=== PATIENT | female | born 1980 | race Caucasian/White ===

== ENCOUNTER 2019-05-31 23:57 | Emergency (ER) | payer BC, SELFPAY ==
--- NOTE | ~2019-05-31 | CT_ITS ---
EXAMINATION: CT BRAIN W/O DATE: 06/01/2019 00:39 INDICATION: Sided weakness and numbness TECHNIQUE: Computed tomography (CT) of the head was performed without intravenous contrast. The dose- length product was 681.00 mGy-cm. Automated exposure control and iterative reconstruction technique w ere employed. COMPARISON: No prior studies for comparison. FINDINGS: Normal brain parenchymal volume for age. Normal palacios-white differentiation. No acute intrac ranial hemorrhage, infarction, mass or mass effect. No ventriculomegaly or midline shift. Midline sagittal images demonstrate a normal corpus callosum, c raniovertebral junction and sella turcica. Basilar cisterns are patent. Paranasal sinuses and mastoids are pneumatized. No depressed skull fractures. IMPRESSION: 1. No acute intracranial abnormality. Reviewed, dictated and finalized at location A.
--- NOTE | ~2019-05-31 | XR_ITS ---
EXAMINATION: XR chest 1V portable 06/01/2019 00:46 INDICATION: Left-sided weakness PROCEDURE: AP portable chest COMPARISON: 06/30/2016 FINDINGS: The lungs are clear. The cardiomediastinal silhouette is within normal limits. There are no pleural effusions. There is no pneumothorax suspected. IMPRESSION: 1: NO ACUTE CARDIOPULMONARY DISEASE. Reviewed, dictated and finalized at location A.
[2019-06-01] VITALS (7 sets, daily range): BP systolic 76–136; BP diastolic 51–92; PULSE 100–120; RESP 16–18; TEMP 36.3–37.1; O2SAT 95–100
--- NOTE | 2019-06-01 00:14 | ECG_ITS ---
Measurements Intervals [place] Rate: 110 P: 26 UT: 137 QRS: 7 QRSD: 93 T: 34 QT: 326 QTc: 442 Interpretive Statements SINUS TACHYCARDIA BASELINE ARTIFACT- I, II, V3 ABNORMAL ECG Electronically Signed On 06-01-2019 8:28:38 CDT by Chon Alas D.O.
--- NOTE | 2019-06-01 00:25 | ED.NEUROSD ---
HPI - Neuro Symptoms/Deficit General Chief Complaint: Suspected CVA Stated Complaint: left side weakness Time Seen by Provider: 06/01/19 00:23 Source: patient, family (Mother at bedside) and RN notes reviewed Mode of arrival: ambulatory Limitations: no limitations History of Present Illness HPI Narrative: Pt is a 39 y/o female presenting to the ED c/o numbness. Pt reports she started experiencing lt sided numbness at 2130 this evening. Pt also reports lt sided rib pain, lt foot weakness, LUE weakness, and moderate lt sided HERNANDEZ. Pt notes her rib pain occurred simultaneously with her numbness and notes her lt sided HERNANDEZ occurred while she arrived to the ED. Pt states she is not currently on any hormone therapy. Pt notes she is able to ambulate. Pt states she was hospitalized at [facility] for a TIA 6 years ago. Pt notes they saw a tiny bleed . Pt's mother at bedside reports the pt's speech is mildly slurred and notes she is mildly confused. Pt reports hx's of x2, breast reduction, Tonsillectomy, Cholecystectomy, and hysterectomy. Pt states her PCP is Dr. Bravo. Pt notes she quit smoking 6 years ago. Time: 21:30 Location: left arm and left leg Associated symptoms: confusion (Per mother), headaches (Lt sided), weakness (Lt foot; LUE) and other (Lt rib pain; Mild slurred speech (per mother)) Related Data Home Medications Medication Instructions Recorded Confirmed liraglutide (weight loss) 3 mg/0.5 3 mg SUB-Q DAILY 01/24/19 mL (18 mg/3 mL) subcut pen injector Allergies Allergy/AdvReac Type Severity Reaction Status Date / Time No Known Allergies Allergy Unverified 04/26/18 08:30 Review of Systems Review of Systems: All systems reviewed & are unremarkable except as noted in HPI and below Musculoskeletal: Musculoskeletal: Reports other (Lt ribs pain) Neurologic: Reports headache(s) (Lt sided), Reports numbness (Lt sided) and Reports weakness (Lt foot; LUE) [facility] Past Medical History Medical History (Updated 06/01/19 @ 04:09 by Muna Hill MD) TIA (transient ischemic attack) Surgical History Surgical History H/O bilateral breast reduction surgery H/O: hysterectomy History of History of cholecystectomy Social History Social History Smoking status: Former smoker Alcohol intake: never Gender identity (if verbalized by the patient): Female Exam Const: General: cooperative, no acute distress and alert Nutritional Appearance: well nourished Orientation/consciousness: patient oriented x3 Limitations: no limitations HENMT: Mouth: Yes lip normal and Yes moist mucous membranes Eyes: Pupils: Equal, round and reactive pupils present EOM: EOMs intact bilaterally Resp: Effort & Inspection: normal respiratory effort Auscultation: clear to auscultation bilaterally Cardio: Rate: regular rate Rhythm: regular rhythm GI: GI Palp: Yes Soft to palpation and No Tenderness to palpation present (GI) Auscultation: normal bowel sounds Skin: General skin exam: normal color Neuro: General: patient oriented x3 Cranial nerves: Yes Other cranial nerve findings present (Mild lt sided facial droop) Cognition (Neuro): normal cognition Speech: normal speech Motor exam (neuro): Pronator motor function not present and Abnormal motor strength present (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 Cannot exclude possibility of acute CVA, though possibility of stroke mimics seems more likely
[2019-06-01 00:27] LABS: Glucose Point of Care 70 (65-105)
[2019-06-01 00:40] LABS: Basophils Percent Auto 0.2 % (0.2-1.2); Eosinophils Absolute Auto 0.1 K/mm3 (0-0.3); Eosinophils Percent Auto 1.3 % (0-4.4); Hematocrit 41.8 % (37.0-47.0); Hemoglobin 13.5 g/dL (12.0-15.0); Immature Granulocyte Absolute 0.02 K/mm3 (0.00-0.031); Immature Granulocyte Percent A 0.4 % (0-0.5); Lymphocytes Absolute Auto 2.77 K/mm3 (0.9-3.2); Lymphocytes Percent Auto 49.9 % (18.3-44.2); Mean Corpuscular HGB Conc 32.3 g/dl (32-36); Mean Corpuscular Hemoglobin 29.4 pg (26-34); Mean Corpuscular Volume 91.1 fl (80-100); Mean Platelet Volume 9.2 fl (7.4-10.4); Monocytes Absolute Auto 0.4 K/mm3 (0.1-0.6); Monocytes Percent Auto 6.5 % (2.6-8.5); Neutrophils Absolute Auto 2.3 K/mm3 (1.3-6.7); Neutrophils Percent Auto 41.7 % (45.5-73.1); Platelet Count Result 325 k/mm3 (150-375); Red Blood Count 4.59 M/mm3 (4.2-5.4); White Blood Count 5.6 K/mm3 (4.5-10.0)
[2019-06-01 00:45] LABS: INR 0.9; Prothrombin Time 11.9 Seconds (11.1-14.7)
[2019-06-01 00:46] LABS: Partial Thromboplastin Time 28.3 SECONDS (22.3-36.8)
[2019-06-01 00:50] LABS: Blood Urea Nitrogen 7 mg/dL (7-17); Calcium 9.6 mg/dL (8.4-10.2); Carbon Dioxide 24 mmol/L (22-30); Chloride 106 mmol/L (98-107); Estimated Glomerular Filt Rate > 60; Glucose 74 mg/dL (65-105); Potassium 3.9 mmol/L (3.4-5.0); Sodium 143 mmol/L (137-145)
[2019-06-01 01:02] LABS: Troponin I < 0.012 ng/mL (0.000-0.034)
--- NOTE | 2019-06-01 03:02 | PC.NURSE ---
Pt currently has a onset of nausea and vomiting as well as complaints of a h/a, MD Greenberg made aware.
[2019-06-01] MEDS: ONDANSETRON INJ 4 MG/2 ML VIAL IV PUSH (03:11)
[2019-06-01] MEDS: KETOROLAC 30 MG/ML VIAL (*BKC) IV PUSH (03:11)
--- NOTE | 2019-06-01 03:23 | PC.NURSE ---
Pt mother refused medication (Reglan) due to her own previous reaction. This RN asked Pt directly if she wanted the medication and the patient allowed her mother to make the decision.
[2019-06-01] MEDS: METOCLOPRAMIDE HCL INJ 10 MG/2 ML VIAL IV PUSH (03:43)
--- NOTE | 2019-06-01 04:11 | PC.NURSE ---
Addendum entered by Maribel Copeland 06/01/19 05:00: Cancelled [facility] @ [id number]. [facility] arrived at 0456 Original Note: Called [facility] to transport patient to [place] [facility]...Declined-no truck available Called [facility] to transport patient to [facility]...Declined Called [facility]...ETA 0830 Called [facility] ... ETA 45-60 minutes.
[2019-06-01 05:03] LABS: Ethanol 147 mg/dL (<10)
== END 2019-06-01 05:01 | disposition short-term general hospital (02) ==
PROVIDERS: Emergency Provider Emergency Medicine; PCP Family Medicine
DX: R53.1 Weakness (principal); R51 Headache; Z86.73 Personal history of transient ischemic attack (TIA), and cerebral infarction without residual deficits; Z87.891 Personal history of nicotine dependence; R00.0 Tachycardia, unspecified
CPT/HCPCS: 36415; 70450; 71045; 80048; 80307; 81025; 82948; 84484; 85025; 85610; 85730; 93005; 96374; 96375; 99285; J1885; J2405; J2765

== ENCOUNTER → 2020-12-23 09:54 | Outpatient (CLI) | payer BC, SELFPAY ==
--- NOTE | ~2020-12-23 | XR_ITS ---
EXAMINATION: XR chest 2V DATE: 12/23/2020 10:09 INDICATION: Cough. And shortness of breath. Anterior central chest pain. Possible COVID. TECHNIQUE: frontal and lateral views of the chest were obtained. COMPARISON: Chest radiograph dated 06/01/2019 FINDINGS: The lungs remain clear with no focal airspace opacities, pulmonary edema, pleural effusion or pneumot horax. The cardiomediastinal silhouette is normal. Mild thoracic spondylosis. Cholecystectomy clips i n the right upper quadrant. IMPRESSION: 1. No acute cardiopulmonary disease. Reviewed, dictated and finalized at location A.
== END ==
PROVIDERS: PCP Family Medicine; Visit Provider Nurse Practitioner Family
DX: R05 Cough (principal)
CPT/HCPCS: 71046

== ENCOUNTER → 2020-12-24 03:05 | Outpatient (CLI) | payer BC, SELFPAY ==
[2020-12-24 18:36] LABS: SARS-CoV-2 RNA PCR Negative
== END ==
PROVIDERS: PCP Family Medicine; Visit Provider Nurse Practitioner Family
DX: J40 Bronchitis, not specified as acute or chronic (principal); Z20.822 Contact with and (suspected) exposure to COVID-19
CPT/HCPCS: C9803; U0003; U0005

== ENCOUNTER → 2021-04-06 02:58 | Outpatient (CLI) | payer BC, SELFPAY ==
[2021-04-06 21:19] LABS: SARS-CoV-2 RNA PCR Positive
== END ==
PROVIDERS: PCP Family Medicine; Visit Provider Family Medicine
DX: U07.1 COVID-19 (principal); R51.9 Headache, unspecified; R05.9 Cough, unspecified; R53.83 Other fatigue; J02.9 Acute pharyngitis, unspecified
CPT/HCPCS: C9803; U0003; U0005

== ENCOUNTER 2022-10-30 11:06 | Outpatient (CLI) | payer OTHER, SELFPAY ==
--- NOTE | ~2022-10-30 | MMUS_ITS ---
EXAMINATION: MM diagnostic sarika BI w tennille, US breast BI limited HISTORY: Pain and palpable lump in the upper outer quadrant of the left breast TECHNIQUE: Craniocaudal, mediolateral, and mediolateral oblique 3-D tomosynthesis images of the breas ts were performed and synthetic 2-D images were generated. CAD analysis was submitted and interpreted . High resolution limited bilateral breast ultrasound was performed. COMPARISON: 05/13/2018 BREAST PARENCHYMAL COMPOSITION: There are scattered areas of fibroglandular density. FINDINGS: MAMMOGRAPHIC FINDINGS: No definite mammographic correlate is identified for the reported palpable abnormality of the left br east. There is a 4 mm oval, circumscribed, low density mass at the 6:00 location the middle third of the right breast 8 cm from the nipple. ULTRASOUND: There is no evidence of focal abnormal solid or cystic mass in the vicinity of the reported palpable abnormality of the left breast. There is a 5 mm cyst of the right breast at the 5:00 location, 3 cm f rom the nipple. A mass with the appearance of an intramammary lymph node is noted at the 7:00 locatio n, 2 cm from the nipple on the right breast. IMPRESSION: 1. No specific mammographic or sonographic correlate is identified for the reported palpable abnormal ity of concern and pain in the left breast. Further evaluation at this time should be based on clinic al assessment. Continued follow-up physical examination is recommended. 2. Recommend routine screening mammography in one year. BI-RADS Category 2: Benign finding(s). Reviewed, dictated and finalized at location A. IMPRESSION: 1. No specific mammographic or sonographic correlate is identified for the repo rted palpable abnormality of concern and pain in the left breast. Further evalu ation at this time should be based on clinical assessment. Continued follow-up physical examination is recommended. 2. Recommend routine screening mammography in one year. BI-RADS Category 2: Benign finding(s).
== END 2022-10-30 11:07 | disposition home or self-care (01) ==
LOC: ANHIMG 11:09
PROVIDERS: PCP Family Medicine; Visit Provider Nurse Practitioner Family
DX: N63.20 Unspecified lump in the left breast, unspecified quadrant (principal); R92.8 Other abnormal and inconclusive findings on diagnostic imaging of breast
CPT/HCPCS: 76642; 77062; 77066; G0279

== ENCOUNTER 2023-05-01 13:10 | Outpatient (CLI) | payer OTHER, SELFPAY ==
[2023-05-01 13:31] LABS: Hematocrit 44.1 % (37.0-47.0); Hemoglobin 14.2 g/dL (12.0-15.0); Mean Corpuscular HGB Conc 32.2 g/dl (32-36); Mean Corpuscular Volume 93.2 fl (80-100); Platelet Count Result 298 k/mm3 (150-375); Red Blood Count 4.73 M/mm3 (4.2-5.4); Red Cell Distribution Width 12.7 % (11.5-14.5); White Blood Count 6.2 K/mm3 (4.5-10.0)
[2023-05-01 14:02] LABS: Alanine Aminotransferase 14 U/L (6-35); Albumin Level 4.3 g/dL (3.5-5.1); Alkaline Phosphatase 57 U/L (38-126); Anion Gap 5 mmol/L (8-16); Aspartate Amino Transferase 21 U/L (14-36); Bilirubin,Total 0.4 mg/dL (0.2-1.3); Blood Urea Nitrogen 9 mg/dL (7-17); Calcium 9.6 mg/dL (8.4-10.2); Carbon Dioxide 28 mmol/L (22-30); Chloride 105 mmol/L (98-107); Cholesterol 232 mg/dL (0-200); Estimated Glomerular Filt Rate > 60; Glucose 142 mg/dL (65-110); HDL Direct 53 mg/dL; Potassium 4.1 mmol/L (3.4-5.0); Sodium 138 mmol/L (137-145); Triglycerides 224 mg/dL (<150)
[2023-05-01 14:13] LABS: LDL Cholesterol Direct 128 mg/dL
[2023-05-01 15:01] LABS: Hemoglobin A1C 5.9 % (<5.7)
[2023-05-03 18:49] LABS: CMV IgG Antibody <0.60 U/mL (<0.60)
[2023-05-04 06:28] LABS: Insulin Level Total 43.3 uIU/mL (<=18.4)
[2023-05-04 17:35] LABS: CMV IgM Antibody <30.00 AU/mL (<30.00)
== END 2023-05-01 13:11 | disposition home or self-care (01) ==
LOC: ANHLAB 13:12
PROVIDERS: PCP Family Medicine; Visit Provider Nurse Practitioner Family
DX: R53.83 Other fatigue (principal); E55.9 Vitamin D deficiency, unspecified; E78.2 Mixed hyperlipidemia; E16.2 Hypoglycemia, unspecified
CPT/HCPCS: 36415; 80053; 80061; 82306; 83036; 83525; 84443; 85027; 86644; 86645

== ENCOUNTER 2023-10-24 13:49 | Outpatient (CLI) | payer OTHER, SELFPAY ==
--- NOTE | ~2023-10-24 | XR_ITS ---
XR hip RT 2V w AP pelvis Ordering provider: Shavon Sultana, PAC History: . fall 8 days ago right hip and tailbone pain . Comparison: None. FINDINGS: BONES: No acute fracture or dislocation. HIP JOINT SPACES: Normal. SACROILIAC JOINT SPACES/LUMBAR SPINE: The sacroiliac joint spaces are normal. Normal visualized lower lumbar spine. PUBIC SYMPHYSIS: Normal. SOFT TISSUES: Normal. IMPRESSION: No acute osseous abnormality pelvis and right hip. Reviewed, dictated and finalized at location A.
--- NOTE | ~2023-10-24 | XR_ITS ---
XR sacrum coccyx min 2V Ordering provider: STANLEY Awad History: . fall 8 days ago right hip and tailbone pain . Comparison: None. FINDINGS: BONES: No acute fracture or dislocation. JOINTS: The bilateral sacroiliac joint spaces appear well maintained. No bony fusion of the sacroilia c joints or bony erosions. SOFT TISSUES: Unremarkable. IMPRESSION: NO ACUTE OSSEOUS ABNORMALITY. NORMAL SACROILIAC JOINTS. Reviewed, dictated and finalized at location A.
== END 2023-10-24 13:50 ==
PROVIDERS: PCP Physician Assistant Medical; Visit Provider Physician Assistant Medical
DX: M25.551 Pain in right hip (principal); M53.3 Sacrococcygeal disorders, not elsewhere classified
CPT/HCPCS: 72220; 73502

== ENCOUNTER 2024-07-10 13:02 | Emergency (ER) | payer BC, SELFPAY ==
--- NOTE | ~2024-07-10 | XR_ITS ---
EXAMINATION: XR ankle LT min 3V DATE: 07/10/2024 14:29 INDICATION: Lateral left ankle pain TECHNIQUE: Anteroposterior, oblique, mortise, and lateral views of the left ankle were obtained. COMPARISON: None. FINDINGS: 1 cortical width lateral displacement of an oblique fracture of the lateral malleolus which exits the medial cortex at level of the tibiotalar joint line. No other fractures identified. Ankle mortise re gerald congruent. Joint spaces are normal. Large ankle joint effusion. Small calcaneal spur. There is soft tissue swelling about the lateral malleolus. No soft tissue swelling about the medial malleolus. IMPRESSION: 1. Minimally displaced Matt type B oblique fracture of the lateral malleolus with large left ankle j oint fusion. Reviewed, dictated and finalized at location A. IMPRESSION: 1. Minimally displaced Matt type B oblique fracture of the lateral malleolus w ith large left ankle joint fusion.
[2024-07-10 13:04] VITALS: BP 90/61; PULSE 106; RESP 18; TEMP 36.8; O2SAT 99
--- OUTSIDE RECORDS SUMMARY | 2024-07-10 13:21 | XMS_ITS ---
Author Organization [employer] [facility] Address [address] [place] [address] Care Team Providers Care Spooler Operator Name Role Phone Denise Boston Primary Care Provider REASON FOR VISIT New Refill Request Encounters Encounter Location Date Provider Diagnosis [facility] - Denise Boston [address] [place] [address] 2024 Denise Boston Plan Of Treatment No Information Progress Notes * MARVIN COLEOB:[birth year] (44 yo F)Acc No.[id number] Patient: Chris LAUREN LINDA :1980 A ge:44 Y S ex:Female Address:[facility] [place] [address] * * Date:
--- OUTSIDE RECORDS SUMMARY | 2024-07-10 13:21 | XMS_ITS | Clinical Summary ---
Author Organization [facility] Address [address] [place] [address] Care Team Providers Care Physician General Internal Medicine Name Role Phone Jarrell Bravo MD Primary Care Provider Source Comments [facility],non-owned Affiliates and Associated Physician Practices is amultiple site organization consisting of ambulatory clinics and hospital sitesin [place] and [place]. This disclosure is being madepursuant to the Care Everywhere program and may not contain all information available regarding this patient. Last updated 17.[facility] Allergies No known active allergies Medications * Be aware that medications may not be up to date on this document. Alwaysverify current medications with the patient. escitalopram (LEXAPRO) 20 MG tablet Take 20 mg by mouth once daily Active fluticasone propionate (FLONASE) 50 MCG/ACT nasal spray [place] 2 sprays into each nostril once daily 1 bottles 06/17/2017 Active Active Problems No known active problems Family History Medical History Relation Name Comments ADHD Brother 1 Multiple Sclerosis Sister 1 Autoimmune Disease Sister 2 Relation Name Status Comments Brother 1 Alive Brother 2 Alive Brother 3 Alive Father Alive Mother Alive Sister 1 Alive Sister 2 Alive Social History Tobacco Use Types Packs/Day Years Used Date Smoking Tobacco: Former Cigarettes 0.3 10 2 003 - 2012 Smokeless Tobacco: Never Alcohol Use Standard Drinks/Week Comments Yes 0 (1 standard drink = 0.6 oz pur e alcohol) Comments No Sex and Gender Information Value Date Recorded Sex Assigned at Not on file Legal Sex Female 11:28 AM CDT Gender Identity Not on file Sexual Orientation Not on file Last Filed Vital Signs Vital Sign Reading Time Taken Comments Blood Pressure 118/84 06/17/2017 2:48 PM CDT Pulse 108 06/17/2017 2:48 PM CDT Temperature 37.5 C (99.5 F) 06/17/2017 2:48 PM CDT Respiratory Rate 16 06/17/2017 2:48 PM CDT Oxygen Saturation 98% 06/17/2017 2:48 PM CDT Inhaled Oxygen Concentration - - Weight 81.6 kg (180 lb) 06/17/2017 2:48 PM CDT Height 170.2 cm (5' 7 ) 06/17/2017 2:48 PM CDT Body Mass Index 28.19 06/17/2017 2:48 PM CDT Plan of Treatment Health Maintenance Due Date Last Done Comments LIPID TESTING 1980 MAMMOGRAM 1980 PAP SMEAR 1980 HIV SCREENING 1995 HEPATITIS C SCREENING 05/16/1998 DTAP/TDAP/TD VACCINES (1 - Tdap) 1999 HEPATITIS B VACCINE (1 of 3 - 19+ 3-dose series) 1999 COVID-19 VACCINE (1 - 2023-2 5 season) 2023 DEPRESSION SCREENING 03/26/2024 INFLUENZA VACCINE (Season Ended) 2024 ZOSTER VACCINE (1 of 2) 2030 HIB VACCINE Aged Out No longer eligi ble based on patient's age to complete this topic HPV VACCINE Aged Out No longer eligi ble based on patient's age to complete this topic MENINGOCOCCAL (Group B) VACC INE SHARED DECISION-MAKING Aged Out No longer eligibl e based on patient's age to complete this topic MENINGOCOCCAL GROUPS A/C/Y/W VACCINE Aged Out No longer eligible b ased on patient's age to complete this topic PNEUMOCOCCAL VACCINE Aged Out No long er eligible based on patient's age to complete this topic Insurance [employer] [facility] [facility] Care Teams Physician General Internal Medicine Relationship Specialty Start Date End Date Jarrell Bravo MD [address] [place] [address] PCP - General Family Medicine 07/24/16
--- OUTSIDE RECORDS SUMMARY | 2024-07-10 13:21 | XMS_ITS ---
Author Organization [employer] [facility] Address [address] [place] [address] Care Team Providers Care Director Of Regional Sales Name Role Phone Denise Boston Primary Care Provider REASON FOR VISIT New Refill Request Encounters Encounter Location Date Provider Diagnosis [facility] - Denise Boston [address] [place] [address] 06/26/2024 Denise Boston Plan Of Treatment No Information Progress Notes * MARVIN COLEOB:[birth year] (44 yo F)Acc No.[id number]:06/26/2024 Patient: Chris LAURENGENNALINDA :1980 A ge:44 Y S ex:Female Address:[facility] [place] [address] * * Date:
--- OUTSIDE RECORDS SUMMARY | 2024-07-10 13:21 | XMS_ITS | Clinical Summary ---
Author Organization [facility] Address [address] [place] [address] Care Team Providers Care Car Hiker Name Role Phone Jarrell Bravo MD Primary Care Provider + [phone] Allergies No known active allergies Medications venlafaxine XR (Effexor XR) 150 mg 24 hr capsule 07/29/2016 Active BIOTIN ORAL Take by mouth Active multivitamin capsule Take 1 capsule by mouth daily Active busPIRone (BUSPAR) 10 mg tablet Take 1 tablet (10 mg total) by mouth 2 (two) times a day 10/01/2022 Active tirzepatide (Mounjaro) 2.5 mg/0.5 mL pen injector Inject 0.5 mL (2.5 mg total) under the skin every 7 days Active metFORMIN XR (GLUCOPHAGE XR) 500 mg 24 hr tablet Take 1 tablet (500 mg total) by mouth 2 (two) times a day 01/01/2024 Active Active Problems Problem Noted Date Diagnosed Date Breast tenderness 12/19/2022 Assessment & Plan (12/19/2022 2:49 PM CDT): Discussed options including repeat imaging now or reevaluating in March which would be 6 months from previous imaging. She will continue to monitor and come in for an exam if pain worsens. Plan for repeat imaging in October at minimum. Migraine with aura and witho ut status migrainosus, not intractable 07/31/2019 Assessment & Plan (07/31/2019 11:13 AM CDT): 39 year old right-handed woman who presents after recent episode of several hours of left sided sensory changes and possible transient left facial droop followed by typical migraine. She gets migraine every 6-8 weeks, usually without aura aside from one similar episode about 8 years ago. Strong family history of migraine with aura, although not clear as prominent as patient's. Given her normal MRI/MRA and migraine history, the likely explanation is this is an atypical migraine aura/complicated migraine. We did discuss her concerns for stroke risk, and I did explain while I cannot 100% exclude this possibility, I did review her otherwise apparent low vascular risk. She has been taking aspirin 81 and while I deferred to her own feelings on risk/benefit of this, I did not strongly recommend this and felt it would be reasonable to discontinue at this time. Given her infrequent headaches otherwise, while I introduced preventatives, did not feel this was necessary at this time. We reviewed acute treatment options, however she is currently happy with advil migraine. If recurrent severe headaches occur, would consider steroid taper or outpatient toradol/compazine as options. Could consider Ubrelvy/Nurtec as alternate oral options as well. RTC in 6 months to reassess, but call if recurrent issues/concerns. I was with the patient for over 40 minutes in face to face time and spent >50% of the visit reviewing pertinent test results with the patient, counseling them on medication management options and lifestyle changes that could benefit symptoms, answering their questions, and discussing follow-up planning Vitamin B12 deficiency anemia 01/25/2018 Arthralgia of ankle 10/30/2011 Immunizations Immunization Administration Dates Next Due Influenza, Trivalent, IM (MDV) 12/25/2014 Tdap 12/30/2014 Surgical History Surgery Date Site/Laterality Comments BREAST SURGERY 12/2008 COSMETIC SURGERY 12/2008 SECTION 02/2015; 01/2016 CHOLECYSTECTOMY 06/2016 HYSTERECTOMY 04/2018 REDUCTION MAMMAPLASTY Medical History Medical History Date Comments Anxiety 2014 Depression 2014 Seizures (HCC) 06/2021 History of foot fracture Family History Medical History Relation Name Comments Alzheimer's disease Maternal Grandfather Can cee Memory loss Maternal Grandfather Can cee Stroke Maternal Grandfather Can cee Alzheimer's disease Maternal Grandmother Laisha cee Breast cancer Maternal Grandmother Laisha cee Cancer Maternal Grandmother Laisha cee Heart attack Maternal Grandmother Laisha cee Heart disease Maternal Grandmother Laisha cee Memory loss Maternal Grandmother Laisha cee Arthritis Other Gout Other defects Son Tray diaz Developmental delay Son Tray diaz Relation Name Status Comments Maternal Grandfather Can cee Maternal Grandmother Laisha cee Other Son Tray diaz Social History Tobacco Use Types Packs/Day Years Used Date Smoking Tobacco: Former Cigarettes 0.5 5 0 03/26/2002 - 03/26/2007 Smokeless Tobacco: Never Tobacco Cessation:Counseling Given: Not Answered Alcohol Use Standard Drinks/Week Comments Yes 0 (1 standard drink = 0.6 oz pur e alcohol) PHQ-2 Answer Date Recorded PHQ-2 Total Score (If total score is 3 or more points, staff should administer the PHQ-9) 0 01/04/2024 Comments No Sex and Gender Information Value Date Recorded Sex Assigned at Not on file 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 Gender Identity Female 07/30/2019 1:04 PM CDT Sexual Orientation Straight 07/30/2019 1: 04 PM CDT Obstetrics History Para Term AB IAB SAB Ectopic Multiple Livin g Live Births 3 3 Date Outcome GA Total Labor Labor/2nd/3rd Weight Sex Type Anes PTL Laya A1 A5 Name Clin Para Para Para Last Filed Vital Signs Vital Sign Reading Time Taken Comments Blood Pressure 124/84 01/04/2024 2:32 PM CDT Pulse 90 01/01/2023 2:26 PM CDT Temperature 36.9 C (98.4 F) 06/01/2019 8:00 AM CDT Respiratory Rate 20 06/01/2019 8:00 AM CDT Oxygen Saturation 94% 06/01/2019 10:30 AM CDT Inhaled Oxygen Concentration - - Weight 87.5 kg (193 lb) 01/04/2024 2:32 PM CDT Height 170.2 cm (5' 7 ) 01/04/2024 2:32 PM CDT Body Mass Index 30.23 01/04/2024 2:32 PM CDT Plan of Treatment Health Maintenance Due Date Last Done Comments Hepatitis C Screening 1980 Varicella Vaccines (1 of 2 - 13+ 2-dose series) 1993 Hepatitis B Screening 1998 Covid-19 Vaccine ( season) 2023 06/15/2020, 05/12/2020 Influenza Vaccine (Season Ended) 2024 12/25/2014 DTaP/Tdap/Td Vaccine (2 - Td or Tdap) 12/30/2024 12/30/2014 Depression Screening 01/03/2025 01/04/2024, 12/18/2022 Regular Well Visit/Exam 18-64 01/03/2025 01/04/2024, 12/18/2022 Breast Cancer Screening-Mammogram 01/17/2025 01/18/2024 Cervical Cancer Screening Discontinued 12/18/2022 HPV Vaccines Aged Out No longer eligi ble based on patient's age to complete this topic Pneumococcal vaccine <65 Aged Out No longer eligible based on patient's age to complete this topic Procedures Procedure Name Priority Date/Time Associated Diagnosis Comments SCREENING MAMMOGRAM BILATERAL W TREVOR Schedule Routine, Read Routine (OP Routine) 01/18/2024 11:14 AM CDT Encounter for screening mammogram for malignant neoplasm of breast PAP AND HPV, REFLEX TO HPV GENOTYPES Routine 12/18/2022 12:00 AM CDT from Last 3 Months or Most Recently Relevant to Health Maintenance Results * Screening Mammogram Bilateral W Trevor (01/18/2024 11:14 AM CDT) Anatomical Region Laterality Modality Breast Bilateral Mammography 02/06/2024 9:02 AM DANCE TEACHER Impressions 02/06/2024 9:02 AM DANCE TEACHER No evidence of malignancy in either breast. FINAL ASSESSMENT: BI-RADS Category 1: Negative. RECOMMENDATION: Recommend return for annual screening mammogram in 12 months. Electronically signed by: Gabrielle Nicole MD Narrative 02/06/2024 9:02 AM DANCE TEACHER EXAMINATION: BILATERAL SCREENING MAMMOGRAM COMPARISON: Mammography 10/30/2022 TECHNIQUE: Full-field 2D and digital breast tomosynthesis (DBT) images were obtained. CAD was utilized. BREAST PARENCHYMAL COMPOSITION: The breasts are almost entirely fatty. FINDINGS: There is no suspicious mass, calcification, or distortion in either breast. Cailin Garcia GLASSWARE MAKER DEMONSTRATOR IMG MAMMO PROCEDURES Final Result * Pap and HPV, reflex to HPV Genotypes (12/18/2022 12:00 AM CDT) Clinical indication Comment [facility] - 01 Comment:NEGATIVE FOR INTRAEP ITHELIAL LESION OR MALIGNANCY. Specimen adequacy: Comment [facility] - 01 Comment: Satisfactory for evaluation. Endocervical and/or squamous metaplastic cells (endocervical component) are present. Clinician provided ICD10 Comment [facility] - 01 Comment:Z01.419 Performed by Comment [facility] - 01 Comment:Valeria Concepcion, Cyto technologist (ASCP) . . [facility] - 01 Note: Comment [facility] - 01 Comment: The Pap smear is a screening test designed to aid in the detection of premalignant and malignant conditions of the uterine cervix. It is not a diagnostic procedure and should not be used as the sole means of detecting cervical cancer. Both false-positive and false-negative reports do occur. Test methodology Comment [facility] - Comment: This liquid based ThinPrep(R) pap test was screened with the use of an image guided system. HPV Aptima Negative Negative [facility] 02 Comment: This nucleic acid amplification test detects fourteen high-risk HPV types (16,18,31,33,35,39,45,51,52,56,58,59,66,68) without differentiation. HPV Genotype Reflex Comment [facility] - Comment:Criteria not met, HP V Genotype not performed. 12/18/2022 12/18/2022 Narrative [facility] - 12/21/2022 10:07 PM CDT Performed at: - [address] [id number] Manager Collection: Carola Craig MD, Phone: [phone] Performed at: - [address] [id number] Manager Collection: Carola Craig MD, Phone: [phone] Specimen Comment: Source.............Cervix;Endocervix Specimen Comment: No. of containers..01 ThinPrep Vial Cailin Garcia NP LAB CYTOLOGY ORDERABLES Fin al Result [facility] - 01 [facility] 02 from Last 3 Months or Most Recently Relevant to Health Maintenance Insurance [employer] MD [id number] [employer] MD Care Teams Car Hiker Relationship Specialty Start Date End Date Jarrell Bravo MD PCP - General 06/01/19
--- OUTSIDE RECORDS SUMMARY | 2024-07-10 13:21 | XMS_ITS | Referral Summary ---
Author Organization [facility] Address [address] [place] [address] Care Team Providers Care Shotblaster Name Role Phone Jarrell Bravo MD Primary Care Provider + [phone] Allergies No known active allergies Medications venlafaxine [...] Influenza, Trivalent, IM (MDV) 12/25/2014 Tdap 12/30/2014 Social History Tobacco Use Types Packs/Day Years [...] on file Legal Sex Female 5:54 PM ACTING TEACHER Gender Identity Female 07/30/2019 1:04 PM CDT Sexual Orientation Straight 07/30/2019 1: 04 PM CDT Last Filed Vital Signs Vital Sign Reading [...] 01/04/2024 2:32 PM CDT Plan of Treatment Not on file Procedures Procedure Name Priority Date/Time Associated Diagnosis [...] Modality Breast Bilateral Mammography 02/06/2024 9:02 AM ACTING TEACHER Impressions 02/06/2024 9:02 AM ACTING TEACHER No evidence of malignancy in either breast. FINAL ASSESSMENT: BI-RADS Category 1: Negative. RECOMMENDATION: Recommend return for annual screening mammogram in 12 months. Electronically signed by: Gabrielle Nicole MD Narrative 02/06/2024 9:02 AM ACTING TEACHER EXAMINATION: BILATERAL SCREENING MAMMOGRAM COMPARISON: Mammography 10/30/2022 TECHNIQUE: Full-field 2D and digital breast tomosynthesis (DBT) images were obtained. CAD was utilized. BREAST PARENCHYMAL COMPOSITION: The breasts are almost entirely fatty. FINDINGS: There is no suspicious mass, calcification, or distortion in either breast. Cailin Garcia NP IM MAMMO PROCEDURES Final Result * Pap and [...] do occur. Test methodology Comment [facility] - 01 Comment: This liquid based ThinPrep(R) pap test was screened with the use of an image guided system. HPV Aptima Negative Negative [facility] 02 Comment: This nucleic acid amplification test detects fourteen high-risk HPV types (16,18,31,33,35,39,45,51,52,56,58,59,66,68) without differentiation. HPV Genotype Reflex Comment [facility] - 01 Comment:Criteria not met, HP V Genotype not performed. 12/18/2022 12/18/2022 Narrative [facility] - 12/21/2022 10:07 PM CDT Performed at: [facility] [id number] Electro Mechanical Technologist: Carola Craig MD, Phone: [phone] Performed at: [facility] [id number] Electro Mechanical Technologist: Carola Craig MD, Phone: [phone] Specimen Comment: Source.............Cervix;Endocervix Specimen Comment: No. of containers..01 ThinPrep Vial Cailin Garcia FULFILLMENT COORDINATOR LAB CYTOLOGY ORDERABLES Fin al Result [facility] - 01 [facility] 02 from Last 3 Months or Most Recently Relevant to Health Maintenance [place] [employer] [place] Care Teams Shotblaster Relationship Specialty Start Date End Date Jarrell Bravo MD [facility] - General 06/01/19
--- OUTSIDE RECORDS SUMMARY | 2024-07-10 13:22 | XMS_ITS | Clinical Summary ---
Author Organization [facility] Address [address] [place] [address] Care Team Providers Care Dog Licenser Name Role Phone Jarrell Bravo MD Primary Care Provider [phone] Allergies No known active allergies Medications zolpidem (AMBIEN) 5 mg tablet Take 5 mg by mouth daily at bedtime. Active LORazepam (ATIVAN) 0.5 mg tablet Take 0.5 mg by mouth every 6 hours as needed for Anxiety. Active ibuprofen (MOTRIN) 200 mg tablet Take 200 mg by mouth every 6 hours as needed for Pain, Mild. Active venlafaxine (EFFEXOR XR) 75 mg Extended Release 24 hour capsule Take 75 mg by mouth daily. Active Active Problems Problem Noted Date Diagnosed Date Vitamin B12 deficiency anemia 03/15/2018 Iron deficiency anemia 01/25/2018 Family History Medical History Relation Name Comments Healthy Brother 1 Healthy Brother 2 Healthy Brother 3 Heart Disease Father Other Father Respiratory Disease Father Healthy Mother Other Sister 1 Other Sister 2 Relation Name Status Comments Brother 1 Alive Brother 2 Alive Brother 3 Alive Father Mother Alive Sister 1 Alive Sister 2 Alive Social History Tobacco Use Types Packs/Day Years Used Date Smoking Tobacco: Former Cigarettes 0.5 8 1 04/27/2003 - 02/25/2012 Alcohol Use Standard Drinks/Week Comments No 0 (1 standard drink = 0.6 oz pur e alcohol) Comments No Sex and Gender Information Value Date Recorded Sex Assigned at Not on file Legal Sex Female 2:08 PM CDT Gender Identity Not on file Sexual Orientation Not on file Last Filed Vital Signs Vital Sign Reading Time Taken Comments Blood Pressure 119/72 03/15/2018 11:34 AM SCROLL ASSEMBLER Pulse 79 03/15/2018 11:34 AM SCROLL ASSEMBLER Temperature 36.8 C (98.2 F) 03/15/2018 11:34 AM SCROLL ASSEMBLER Respiratory Rate 18 03/15/2018 11:3 4 AM SCROLL ASSEMBLER Oxygen Saturation 95% 03/15/2018 11: 34 AM SCROLL ASSEMBLER Inhaled Oxygen Concentration - - Weight 104.5 kg (230 lb 4.8 oz) 018 11:34 AM SCROLL ASSEMBLER Height 170.2 cm (5' 7 ) 03/15/2018 11:3 4 AM SCROLL ASSEMBLER Body Mass Index 36.07 03/15/2018 11:34 AM SCROLL ASSEMBLER Plan of Treatment Health Maintenance Due Date Last Done Comments DTAP/TDAP/TD VACCINES (1 - Tdap) 1999 HEPATITIS B VACCINES (1 of 3 - 19+ 3-dose series) 1999 HPV/Cotest (21-29) 2001 PAP SMEAR 2001 CERVICAL CANCER SCREENING 2010 HPV/Cotest (30-65) 2010 PAP SMEAR 2010 BREAST CANCER SCREENING 2020 INFLUENZA VACCINE (#1) 2023 HPV VACCINES Aged Out No longer eligi ble based on patient's age to complete this topic PNEUMOCOCCAL VACCINE 0-49 YEARS Aged Out No longer eligible based on patient's age to complete this topic Insurance [employer] P[employer] Care Teams Dog Licenser Relationship Specialty Start Date End Date Jarrell Bravo MD [address] [place] [address] PCP - General Family Practice 01/25/18
--- OUTSIDE RECORDS SUMMARY | 2024-07-10 13:22 | XMS_ITS ---
Author Organization [facility] Address [address] [place] [address] Care Team Providers Care Research And Development Engineer Name Role Phone Denise Boston Primary Care Provider REASON FOR VISIT New Refill Request Encounters Encounter Location Date Provider Diagnosis [facility] - Denise Boston [address] [place] [address] 05/23/2024 Denise Boston Plan Of Treatment No Information Progress Notes * MARVIN COLEOB:[birth year] (44 yo F)Acc No.[id number]:05/23/2024 Patient: Chris LAUREN LINDA :1980 A ge:44 Y S ex:Female Address:[facility] [place] [address] * * Date:
--- OUTSIDE RECORDS SUMMARY | 2024-07-10 13:22 | XMS_ITS | Encounter Summary ---
Author Organization [facility] Address [address] [place] [address] Care Team Providers Care Grinder Operator Name Role Phone Jarrell Bravo MD Primary Care Provider [phone] Vipin Drake MD Unavailable [phone] Encounter Details Date Type Department Care Team (Late st Contact Info) Description 07/15/2018 Lab Requisition [facility] [address] [facility] [place] [id number] Nia Shelton MD [address] [facility] [address] [place] [address] Social History Tobacco Use Types Packs/Day Years Used Date Smoking Tobacco: Former Cigarettes 0.3 10 2 003 - 2013 Smokeless Tobacco: Never Alcohol Use Standard Drinks/Week Comments Yes 0 (1 standard drink = 0.6 oz pur e alcohol) Comments No Sex and Gender Information Value Date Recorded Sex Assigned at Not on file Legal Sex Female 11:28 AM CDT Gender Identity Not on file Sexual Orientation Not on file documented as of this encounter Plan of Treatment Not on file documented as of this encounter Procedures Procedure Name Priority Date/Time Associated Diagnosis Comments DERMATOPATHOLOGY Routine 07/11/2018 12:0 0 AM CDT documented in this encounter Results * DERMATOPATHOLOGY (07/11/2018 12:00 AM CDT) Case Report Dermatopathology Report Case: [id number] Authorizing Provider: Nia Shelton MD Collected: 07/11/2018 12:00 AM Pathologist: Jessi Cannon MD Received: 07/15/2018 06:37 AM Specimen: Skin, right cheek 1:35 PM CDT DERMATOPATHOLOGY LABORATORY Final Diagnosis Specimen A. 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 The specimen consists of a shave biopsy measuring 3x2x1 mm. Jar 0. 1:35 PM CDT DERMATOPATHOLOGY LABORATORY Microscopic Description Specimen A. SKIN, right cheek: There are prominent sebaceous gland lobules surrounding a dilated hair follicle. Additional deeper sections were obtained and reviewed. 1:35 PM CDT DERMATOPATHOLOGY LABORATORY Disclaimer An external and internal positive and negative controls are appropriate for the histochemical, immunohistochemical and immunofluorescence stain(s) in this case (if any), except where stated explicitly. The performance characteristics of the stain(s) cited in this report were developed and its performance characteristic determined by the Dermatopathology Laboratory at [facility], directed by Dr. Pao Cannon. These tests need not be, and therefore are not, approved by the [place] Food and Drug Administration. The tests are used for clinical purposes. Billing Codes Specimen Charges Stain Charges 41357 1 1:35 PM CDT DERMATOPATHOLOGY LABORATORY Embedded Images 1:35 PM CDT DERMATOPATHOLOGY LABORATORY Pathology/Cytolog y TISSUE SPECIMEN FROM SKIN / Unknown 07/11/2018 07/15/2018 6:37 AM CDT us Nia Shelton MD LAB - PATHOLOGY/CYTOLOGY ORD ERABLES Final Result DERMATOPATHOLOGY LABORATORY [facility] - Department of Dermatology [address] [facility] [place] [address], [facility] [phone] documented in this encounter Visit Diagnoses Not on filedocumented in this encounter Care Teams Grinder Operator Relationship Specialty Start Date End Date Jarrell Bravo MD [address] [place] [address] PCP - General Family Medicine 07/24/16 Vipin Drake MD [address] [id number] PCP - Attributed-[employer] [place] 06/24/21 02/10/22 documented as of this encounter
--- OUTSIDE RECORDS SUMMARY | 2024-07-10 13:22 | XMS_ITS | Patient Health Record ---
Author Organization [facility] Address [address] [address] Care Team Providers Care Hospital Pharmacy Technician Name Role Phone Denise Boston Primary Care Provider Migration, Provider Unavailable Unavailable Allergies No Known Allergies Results Component Value Reference Range Notes COMPREHENSIVE METABOLIC PANE L Reviewed date:07/27/2023 02:31:58 PM Interpretation: Per[facility], [address], [place], [address] Conor Christensen Notes/Report: FASTING:YES FASTING: YES VITAMIN D, 25-HYDROXY, LC/MS /MS Reviewed date:07/25/2023 01:22:39 PM Interpretation: Performing Lab:Ary [facility], [place], [address] Conor Christensen MD Notes/Report: FASTING:YES FASTING: YES T3, FREE Reviewed date:07/27/2023 02:32:38 PM Interpretation: Performing Lab:[facility], [place], [address] Conor Christensen MD Notes/Report: FASTING:YES FASTING: YES CORTISOL, TOTAL Reviewed date:07/27/2023 02:32:19 PM Interpretation: Performing Lab:Ary [facility], [address] [place], [address] Conor Christensen MD Notes/Report: FASTING:YES FASTING: YES ESTRADIOL Reviewed date:07/27/2023 02:31:14 PM Interpretation: Performing Lab:[place], [facility], [address], [place], [address] Conor Christensen MD Notes/Report: FASTING:YES FASTING: YES FSH Reviewed date:07/27/2023 02:32:25 PM Interpretation: Performing Lab:[facility], [address], [place], [address] Conor Christensen MD Notes/Report: FASTING:YES FASTING: YES HEMOGLOBIN A1c Reviewed date:07/25/2023 01:22:29 PM Interpretation: Performing Lab:[facility], [address] [place], [address] Conor Christensen Notes/Report: FASTING:YES FASTING: YES INSULIN Reviewed date:07/27/2023 02:32:32 PM Interpretation: Performing Lab:[facility], [address], [place], [address] Conor Christensen MD Notes/Report: FASTING:YES FASTING: YES LH Reviewed date:07/25/2023 01:23:55 PM Interpretation: Performing Lab:[facility], [address], [place], [address] Conor Christensen MD Notes/Report: FASTING:YES FASTING: YES CBC (INCLUDES DIFF/PLT) Reviewed date:07/27/2023 02:31:28 PM Interpretation: Performing Lab:[facility], [address] [place], [address] Conor Christensen Notes/Report: FASTING:YES FASTING: YES PROGESTERONE Reviewed date:07/27/2023 02:31:37 PM Interpretation: Performing Lab:[facility], [address], [place], [address] Conor Christensen MD Notes/Report: FASTING:YES FASTING: YES T4, FREE Reviewed date:07/25/2023 01:23:41 PM Interpretation: Performing Lab:JO[place] [facility], [address], [place], [address] Conor Christensen MD Notes/Report: FASTING:YES FASTING: YES TSH Reviewed date:07/25/2023 01:23:08 PM Interpretation: Performing Lab:[facility]ry [facility]LL [facility], [address] [place], [address] Conor Christensen Notes/Report: FASTING:YES FASTING: YES VITAMIN B12 Reviewed date:07/25/2023 01:23:26 PM Interpretation: Performing Lab:[facility], [address], [place], [address] Conor Christensen MD Notes/Report: FASTING:YES FASTING: YES THYROID PEROXIDASE ANTIBODIE S Reviewed date:07/27/2023 02:32:06 PM Interpretation: Performing Lab:[facility], [facility], [place], [address] Arcenio Guan Notes/Report: FASTING:YES FASTING: YES THYROID PEROXIDASE ANTIBODIES 1 <9 IU/mL COMPREHENSIVE METABOLIC PANE L Reviewed date:12/11/2023 09:31:40 AM Interpretation: Performing Lab:[facility], [address] [place], [address] Conor Christensen Notes/Report: FASTING:NO FASTING: NO T3, FREE Reviewed date:12/11/2023 09:29:57 AM Interpretation: Performing Lab:[facility], [address], [place], [address] Conor Christensen MD Notes/Report: FASTING:NO FASTING: NO HEMOGLOBIN A1c Reviewed date:12/11/2023 09:29:16 AM Interpretation: Performing Lab:[facility], [address] [place], [address] Conor Christensen Notes/Report: FASTING:NO FASTING: NO INSULIN Reviewed date:12/12/2023 09:23:26 PM Interpretation: Performing Lab:[facility], [address], [place], [address] Conor Christensen MD Notes/Report: FASTING:NO FASTING: NO CBC (INCLUDES DIFF/PLT) Reviewed date:12/11/2023 09:31:21 AM Interpretation: Performing Lab:[facility], [address] , [place], [address] [facility] Notes/Report: FASTING:NO FASTING: NO LIPID PANEL Reviewed date:12/11/2023 09:31:48 AM Interpretation: Performing Lab:[facility], [facility], [address] , [place], [address] [facility] Notes/Report: FASTING:NO FASTING: NO T4, FREE Reviewed date:12/11/2023 09:29:50 AM Interpretation: Performing Lab:[facility], [facility], [address] , [place], [address] [facility] Haylie Notes/Report: FASTING:NO FASTING: NO TSH Reviewed date:12/11/2023 09:29:43 AM Interpretation: Performing Lab:[facility], [address] , [place], [address] [facility] Notes/Report: FASTING:NO FASTING: NO VITAMIN B12 Reviewed date:12/11/2023 09:30:10 AM Interpretation: Performing Lab:[facility], [address], [place], [address] Conor Christensen MD Notes/Report: FASTING:NO FASTING: NO COMPREHENSIVE METABOLIC PANE L Reviewed date:02/23/2024 02:31:00 PM Interpretation: Performing Lab:[facility], [address], [place], [address] Conor Christensen MD Notes/Report: FASTING:YES FASTING: YES VITAMIN D, 25-HYDROXY, LC/MS /MS Reviewed date:02/25/2024 07:19:05 PM Interpretation: Performing Lab:[facility], [address], [place], [address] Conor Christensen MD Notes/Report: FASTING:YES FASTING: YES ACTH, PLASMA Reviewed date:02/27/2024 09:49:03 PM Interpretation: Performing Lab:[facility], [address], [place], [address] Thomas Chau M.D.,PhD Notes/Report: FASTING:YES FASTING: YES T3, FREE Reviewed date:02/23/2024 02:29:59 PM Interpretation: Performing Lab:[facility], [address], [place], [address] Conor Christensen MD Notes/Report: FASTING:YES FASTING: YES CORTISOL, TOTAL Reviewed date:02/23/2024 02:32:11 PM Interpretation: Performing Lab:[facility], [address], [place], [address] Conor Christensen MD Notes/Report: FASTING:YES FASTING: YES DHEA SULFATE Reviewed date:02/23/2024 03:20:55 PM Interpretation: Performing Lab:[facility], [address], [place], [address] Conor Christensen MD Notes/Report: FASTING:YES FASTING: YES HEMOGLOBIN A1c Reviewed date:02/23/2024 02:24:35 PM Interpretation: Performing Lab:[facility], [address] , [place], [address] Conor Christensen Notes/Report: FASTING:YES FASTING: YES INSULIN Reviewed date:02/23/2024 02:30:09 PM Interpretation: Performing Lab:[facility], [address], [place], [address] Conor Christensen MD Notes/Report: FASTING:YES FASTING: YES CBC (INCLUDES DIFF/PLT) Reviewed date:02/23/2024 02:31:19 PM Interpretation: Performing Lab:Ary [facility]ONNELL, [address] , [place], [address] Conor Christensen Notes/Report: FASTING:YES FASTING: YES IRON AND TOTAL IRON BINDING CAPACITY Reviewed date:02/23/2024 02:30:36 PM Interpretation: Performing Lab:[facility], [address], [place], [address] Conor Christensen MD Notes/Report: FASTING:YES FASTING: YES LIPID PANEL Reviewed date:02/23/2024 02:30:18 PM Interpretation: Performing Lab:[facility], [facility], [address] [place], [address] Conor Christensen Notes/Report: FASTING:YES FASTING: YES T4, FREE Reviewed date:02/23/2024 02:26:12 PM Interpretation: Performing Lab:[facility], [address] [place], [address] Conor Christensen Notes/Report: FASTING:YES FASTING: YES PTH, INTACT AND CALCIUM Reviewed date:02/23/2024 02:30:27 PM Interpretation: Performing Lab:[facility], [address] [place], [address] Conor Christensen MD Notes/Report: FASTING:YES FASTING: YES TSH Reviewed date:02/23/2024 02:26:04 PM Interpretation: Performing Lab:[facility], [address] [place], [address] Conor Christensen Notes/Report: FASTING:YES FASTING: YES DEXAMETHASONE Reviewed date:03/02/2024 10:43:32 AM Interpretation: Performing Lab:[facility],, [address] [place], [address] Loraine Hughes MD,PhD,ALYX Notes/Report: FASTING:YES FASTING: YES DEXAMETHASONE 630 Reference Ranges for Dexamethasone: Baseline: Less than 20 ng/dL 1 mg dexamethasone overnight: 180-550 ng/dL (8:00-10:00 AM) This test was developed and its analytical performance characteristics have been determined by [facility]. It has not been cleared or approved by FDA. This assay has been validated pursuant to the CLIA regulations and is used for clinical purposes. CORTISOL, TOTAL Reviewed date:02/23/2024 02:35:02 PM Interpretation: Performing Lab:[facility], [address] [place], [address] Conor Christensen MD Notes/Report: FASTING:YES FASTING: YES Reason For Referral Reason family hx of heart d isease, having chest pain Referral Organization [facility], [facility] - Denise Boston Referring Provider First Name Denise Referring Provider Last Name Darvin Referring Provider Speciality Internal M edicine Referred Provider Specialty Cardiovascul ar Disease Referral Priority Routine Medications Medication SIG (Take, Route, Frequency, Duration) Notes Start Date End Date Status metFORMIN HCl ER 500 MG TAKE 1 TABLET BY MOUTH TWICE DAILY WITH MEALS for 90 Active dexAMETHasone 1 MG 1 tablet Orally at 1 0 pm night before 8 am cortisol for 1 days 03/10/2024 Active busPIRone HCl 10 MG 1 tab(s) orally 2 ti mes a day for 30 day(s) 06/29/2023 Active Adderall XR 20 MG 1 cap(s) orally once a day (in the morning) for 30 day(s) 10/19/2023 Active Mounjaro 5 MG/0.5ML inject 5 mg subcutan eously once a week for 90 days 12/11/2023 Active Venlafaxine HCl ER 150 MG 1 cap(s) orall y once a day for 30 day(s) 06/29/2023 Active Mounjaro 7.5 MG/0.5ML inject 7.5 mg Subc utaneous weekly for 90 days 03/10/2024 Active dexAMETHasone 1 MG 1 tab(s) orally at 1 0 pm night before 8 am cortisol for 1 days 12/11/2023 Active Amphetamine-Dextroamphet ER 20 MG 1 cap(s) orally once a day (in the morning) for 30 days 03/07/2024 Active Problems Problem Type SNOMED Code ICD Code Onset Dates Problem Status W/U Status Risk Notes Problem Vitamin D deficiency (06502839) Vitamin D deficiency, unspecified (E55.9) Active confirmed Problem Hyperglycemia due to type 2 diabetes mellitus (486719703044616) Type 2 diabetes mellitus with hyperglycemia (E11.65) Active confirmed Problem Type II diabetes mellitus without complication (932014084) Type 2 diabetes mellitus without complications (E11.9) Active confirmed Problem Hypothyroidism (50303701) Hypothyroidism, unspecified (E03.9) Active confirmed Problem Obesity (788900844) Obesity, unspecified (E66.9) Active confirmed Problem Hypercalcemia (75948428) Hypercalcemia (E83.52) Active confirmed Problem Autoimmune thyroiditis (73027863) Autoimmune thyroiditis (E06.3) Active confirmed Problem Mixed hyperlipidemia (309446874) Mixed hyperlipidemia (E78.2) Active confirmed Problem Menopause (299908308) Menopausal and female climacteric states (N95.1) Active confirmed Problem Attention deficit hyperactivity disorder, predominantly inattentive type (disorder) (03518183) Attention and concentration deficit (R41.840) Active confirmed Vital Signs Heart Rate 74 /min 03/10/2024 Respiratory Rate 12 /min 03/10/2024 Blood pressure diastolic 72 mm Hg 03/10/2024 Height 66 in 03/10/2024 Blood pressure systolic 128 mm Hg 03/10/2024 Weight 166 lbs 03/10/2024 BMI 26.79 kg/m2 03/10/2024 Encounters Encounter Location Date Provider Diagnosis [address] [address] 02/09/2024 Provider Migration Type 2 diabetes mellitus with hyperglycemia E11.65 ; Attention and concentration deficit R41.840 and Obesity, unspecified E66.9 [facility] [employer] [address] [place] [address] 07/27/2023 Denise Boston Prediabetes R73.03 ; Vitamin B12 deficiency anemia, unspecified D51.9 ; Autoimmune thyroiditis E06.3 ; Vitamin D deficiency, unspecified E55.9 and Attention and concentration deficit R41.840 [facility] [place] [address] [place] [address] 09/13/2023 Denise Boston Type 2 diabetes mellitus with hyperglycemia E11.65 ; Encounter for screening for lipoid disorders Z13.220 ; Hypothyroidism, unspecified E03.9 ; Chest pain, unspecified R07.9 ; Vitamin D deficiency, unspecified E55.9 ; Other fatigue R53.83 and Attention and concentration deficit R41.840 [facility] [place] [address] 11/13/2023 Denise Boston Type 2 diabetes mellitus with hyperglycemia E11.65 ; Hypothyroidism, unspecified E03.9 ; Attention and concentration deficit R41.840 and Dietary counseling and surveillance Z71.3 [facility] [address] [place] [address] 12/11/2023 Denise Boston Type 2 diabetes mellitus with hyperglycemia E11.65 ; Attention and concentration deficit R41.840 ; Autoimmune thyroiditis E06.3 ; Mixed hyperlipidemia E78.2 ; Obesity, unspecified E66.9 and Hypercalcemia E83.52 [facility] - Denise [place] [address] [place] [address] 03/10/2024 Denise Boston Type 2 diabetes mellitus with hyperglycemia E11.65 ; Hypothyroidism, unspecified E03.9 ; Obesity, unspecified E66.9 ; Mixed hyperlipidemia E78.2 and Dietary counseling and surveillance Z71.3 [facility] - Denise [email or web address] [address] [place] [address] 10/19/2023 Denise Boston Attention and concentration deficit R41.840 [facility] - Denise [place] [address] [place] [address] 11/27/2023 Denise Boston Attention and concentration deficit R41.840 [facility] - Denise [place] [address] [place] [address] 12/28/2023 Denise Boston [facility] [employer] [address] [place] [address] 03/11/2024 [facility]ise [facility] - Denise [place] [address] [place] [address] 05/06/2024 Denise [facility] - Denise [place] [address] [place] [address] 05/18/2024 Denise [facility] - Denise [place] [address] [place] [address] 2024 Denise [facility], [facility] - Denise [place] [address] [place] [address] 05/23/2024 Denise [facility] - Denise [place] [address] [place] [address] 06/26/2024 Denise [facility] - Denise [place] [address] [place] [address] 03/06/2024 Denise Boston Attention and concentration deficit R41.840 [facility] - Denise Darvin [address] [place] [address] 03/07/2024 Denise Darvin Attention and concentration deficit R41.840 [employer] [facility] - Denise Darvin [address] [place] [address] 03/08/2024 Denise Boston Assessments Encounter Date Diagnosis (ICD Code) Assessment Notes Treatment Notes Treatment Clinical Notes Section Notes 02/09/2024 Type 2 diabetes mellitus with hyperglycemia (ICD-10 - E11.65) 02/09/2024 Attention and concentration deficit (ICD-10 - R41.840) 07/27/2023 Vitamin B12 deficiency anemia, unspecified (ICD-10 - D51.9) Continue on vitamin B12 supplementation and she is on [employer] wellness shakes which do contain methylated B12. 07/27/2023 Prediabetes (ICD-10 - R73.03) A1C of 6%- continue on metformin for insulin sensitization. Discussed carb counting and how to read food labels. Recommended patient to utilize the Rapid[employer]iner from the [employer] website to help with food preparation as this presents ideal carb content per meal and will make carb counting easier for patient. Recommended she incorporate natural insulin sensitizers such as pears, apples, cinnamon, mely and sweet potatoes to help mobilize her endogenous insulin. Recommended up to 150 minutes of moderate level activity /exercise per week. 09/13/2023 Type 2 diabetes mellitus with hyperglycemia (ICD-10 - E11.65) Will uptitrate metformin to twice daily as patient tolerating well. Discussed carb counting and how to read food labels. Recommended patient to utilize the Rapid[employer]iner from the [employer] website to help with food preparation as this presents ideal carb content per meal and will make carb counting easier for patient. Recommended she incorporate natural insulin sensitizers such as pears, apples, cinnamon, mely and sweet potatoes to help mobilize her endogenous insulin. Recommended up to 150 minutes of moderate level activity /exercise per week. 09/13/2023 Encounter for screening for lipoid disorders (ICD-10 - Z13.220) Send for fasting lipid panel. 11/13/2023 Type 2 diabetes mellitus with hyperglycemia (ICD-10 - E11.65) Due for A1C- Recommended GLP1 agonist therapy as she is having trouble at times with cravings of sweets and portion control. Metformin is not controlling her hunger or sugar control. 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 She has no history of pancreatitis or medullary thyroid cancer and is willing to trial on a GLP1 agonist therapy. He/She was advised to contact clinic if she experiences any nausea, vomiting or significant thyroid pain/swelling or abdominal pain so we can discuss and discontinue and potentiually look into other therapy. Trial on mounjaro 2.5 mg once weekly with large meal. Discussed carb counting and how to read food labels. Recommended patient to utilize the diabetesInsurity from the ADA website to help with food preparation as this presents ideal carb content per meal and will make carb counting easier for patient. Recommended she incorporate natural insulin sensitizers such as pears, apples, cinnamon, mely and sweet potatoes to help mobilize her endogenous insulin. Recommended up to 150 minutes of moderate level activity /exercise per week. 11/13/2023 Hypothyroidism, unspecified (ICD-10 - E03.9) She didn't see much of a difference on thyroid trial. Will repeat levels and assess need to restart or try higher dosing, discussed diet low in refined sugars and processed foods as this will help with reduction of inflammation. 12/11/2023 Type 2 diabetes mellitus with hyperglycemia (ICD-10 - E11.65) a1c of 5.5% - tolerating GLP1 agonist therapy well-has lost 18 pounds on 2.5 mg of mounjaro alone. Continue on mounjaro and uptitrate to 5 mg weekly with large meal and continue metformin once daily with largest meal. Discussed carb counting and how to read food labels. Recommended patient to utilize the RapidMiner from the ADA website to help with food preparation as this presents ideal carb content per meal and will make carb counting easier for patient. Recommended he/she incorporate natural insulin sensitizers such as pears, apples, cinnamon, mely and sweet potatoes to help mobilize his/her endogenous insulin. Recommended up to 150 minutes of moderate level activity /exercise per week. 12/11/2023 Attention and concentration deficit (ICD-10 - R41.840) Refill adderall XR 20 mg daily. She has more focus and energy overall. 03/10/2024 Type 2 diabetes mellitus with hyperglycemia (ICD-10 - E11.65) 10/19/2023 Attention and concentration deficit (ICD-10 - R41.840) 11/27/2023 Attention and concentration deficit (ICD-10 - R41.840) 03/06/2024 Attention and concentration deficit (ICD-10 - R41.840) 03/07/2024 Attention and concentration deficit (ICD-10 - R41.840) 07/27/2023 Autoimmune thyroiditis (ICD-10 - E06.3) Recommended purely holistic thyroid support as her TSH is elevated at 3.8 uIU/ml with overall normal FT4/FT3 however she has had thyroid replacement before in the past. Discussed need to reduce refined sugars and processed foods to help with weight and with reducing inflammation to maintain endogenous thyroid function. May need very low dose T4 hormone if TSH remains elevated after trial of supplementation. 09/13/2023 Hypothyroidism, unspecified (ICD-10 - E03.9) Trial on low dose synthroid 25 mcg daily as she has continued heat/cold intolerance and fatigue. She doesn't see any difference on thyroid support- she is aware to complete labwork in 4-6 weeks to assess response to therapy and to reach out if any concerns or side effects/palpitations . 11/13/2023 Attention and concentration deficit (ICD-10 - R41.840) Refill adderall XR 20 mg daily as this helps with focus and concentration and not effect BP control. 12/11/2023 Autoimmune thyroiditis (ICD-10 - E06.3) Continue with thyroid support and diet low in refined sugars / processed foods. 03/10/2024 Hypothyroidism, unspecified (ICD-10 - E03.9) 07/27/2023 Vitamin D deficiency, unspecified (ICD-10 - E55.9) Send for Vit D to monitor for needs in supplemental dosing change. 09/13/2023 Chest pain, unspecified (ICD-10 - R07.9) Refer to cardiology for risk stratification as heart disease runs in her grandparents. 11/13/2023 Dietary counseling and surveillance (ICD-10 - Z71.3) Discussed dietary measures in regards to weight loss- importance to restrict calories to 1200 per day if sedentary vs 3261-0236 calories depending on caloric expenditure. She was provided information on [email or web address] as this program manages metabolic syndrome and products include insulin sensitizers along with thyroid support/supplementat ion to help tailor weight loss in individuals who struggle with underlying autoimmune thyroid conditions and hyperglycemia (fasting glucose of 123 mg/dL). Spent up to 20 minutes discussing alternative weight loss options. 12/11/2023 Mixed hyperlipidemia (ICD-10 - E78.2) TG and TC elevated- recommended fish oil with DHA/EPA oils. 03/10/2024 Obesity, unspecified (ICD-10 - E66.9) 02/09/2024 Obesity, unspecified (ICD-10 - E66.9) 07/27/2023 Attention and concentration deficit (ICD-10 - R41.840) Patient scored high ASRS diagnostic criteria of 26/30- recommend due to difficulty with goal completion and focus -she has strong family hx of ADHD- would trial a very low dose adderall XR 10 mg daily. She did trial phentermine in the past which helped to a small degree but wasn't fully helpful in full task orientation. She is aware this can cause dry mouth, palpitations and elevation of blood pressure. We will see patient back in 4-6 weeks to monitor closely and to assess need to modify therapy further. 09/13/2023 Vitamin D deficiency, unspecified (ICD-10 - E55.9) Send for vit D to assess need to modify therapy. 12/11/2023 Obesity, unspecified (ICD-10 - E66.9) discussed dietary measures in regards to weight loss- importance to restrict calories to 1200 per day if sedentary vs [id number] calories depending on caloric expenditure. She was provided information on [email or web address] as this program manages metabolic syndrome and products include insulin sensitizers along with thyroid support/supplementat ion to help tailor weight loss in individuals who struggle with underlying autoimmune thyroid conditions and hyperglycemia (fasting glucose of 97 mg/dL). Spent up to 20 minutes discussing alternative weight loss options. 03/10/2024 Mixed hyperlipidemia (ICD-10 - E78.2) 09/13/2023 Other fatigue (ICD-10 - R53.83) Send for thyroid and vitamin panel. 12/11/2023 Hypercalcemia (ICD-10 - E83.52) Send for parathyroid panel and DST to screen for hypercortisolism. 03/10/2024 Dietary counseling and surveillance (ICD-10 - Z71.3) 09/13/2023 Attention and concentration deficit (ICD-10 - R41.840) Will uptitrate adderall up to 20 mg daily as she is struggling with continued concentration and focus. Her blood pressure is within normal range. 07/27/2023 Other Spent 25 minute s preparing to see the patient (ex review of tests/chart), obtaining and / or reviewing separately obtained history, performing a medically appropriate examination and/or evaluation, counseling and educating the patient/family/careg iver, ordering medications, tests, or procedures, referring and communicating with other health career development manager, documenting clinical information in the electronic or other health record, independently interpreting results and communicating results to the patient/family/careg iver and care coordinating patient plan. Patient alert and oriented x 4 and aware of discussion noted above and in agreeance to plan in management of prediabetes, hormones and new dx of ADHD (ASRS score of 26/30). 09/13/2023 Other Spent 25 minute s preparing to see the patient (ex review of tests/chart), obtaining and / or reviewing separately obtained history, performing a medically appropriate examination and/or evaluation, counseling and educating the patient/family/careg iver, ordering medications, tests, or procedures, referring and communicating with other health career development manager, documenting clinical information in the electronic or other health record, independently interpreting results and communicating results to the patient/family/careg iver and care coordinating patient plan. Patient alert and oriented x 4 and aware of discussion noted above and in agreeance to plan in management of DM, early hypothyroidism, vit D def, ADHD and referral to cardiology. 11/13/2023 Other Spent 25 minute s preparing to see the patient (ex review of tests/chart), obtaining and / or reviewing separately obtained history, performing a medically appropriate examination and/or evaluation, counseling and educating the patient/family/careg iver, ordering medications, tests, or procedures, referring and communicating with other health career development manager, documenting clinical information in the electronic or other health record, independently interpreting results and communicating results to the patient/family/careg iver and care coordinating patient plan. Patient alert and oriented x 4 and aware of discussion noted above and in agreeance to plan in management of DM, weight management, ADHD, autoimmune thyroiditis. Due to the nature of telemedicine, the ability to do physical assessment was limited to what can be accomplished by patient directed telehealth visit based on instruction. Those limits are understood by the patient and myself. Impression is based on history, available information, and physical findings accomplished with telehealth visit. Chronic disease/problem list/ medication list reviewed and updated where indicated. Discussed diagnosis, plan including risks, benefits, and options of treatment. Advised to call for new, worsening, or persistent symptoms. Level of patient risk was of moderate complexity due to the documented nature of presentation, the information assessment required and the nature of the development of an evaluation and treatment plan as documented. PMH, FHx, SHx, Surgical Hx, Quality management review carried out and addressed as documented today as part of this visit. Medication list was reviewed and adjusted as indicated. Medication requiring a refill was addressed. Risk and benefits of any new medications were discussed and all questions were answered. 12/11/2023 Other Spent 25 minutes preparing to see the patient (ex review of tests/chart), obtaining and / or reviewing separately obtained history, performing a medically appropriate examination and/or evaluation, counseling and educating the patient/family/careg iver, ordering medications, tests, or procedures, referring and communicating with other health career development manager, documenting clinical information in the electronic or other health record, independently interpreting results and communicating results to the patient/family/careg iver and care coordinating patient plan. Patient alert and oriented x 4 and aware of discussion noted above and in agreeance to plan in management of type 2 DM, weight management, ADHD, autoimmune thyroiditis and finding of hypercalcemia. Due to the nature of telemedicine, the ability to do physical assessment was limited to what can be accomplished by patient directed telehealth visit based on instruction. Those limits are understood by the patient and myself. Impression is based on history, available information, and physical findings accomplished with telehealth visit. Chronic disease/problem list/ medication list reviewed and updated where indicated. Discussed diagnosis, plan including risks, benefits, and options of treatment. Advised to call for new, worsening, or persistent symptoms. Level of patient risk was of moderate complexity due to the documented nature of presentation, the information assessment required and the nature of the development of an evaluation and treatment plan as documented. PMH, FHx, SHx, Surgical Hx, Quality management review carried out and addressed as documented today as part of this visit. Medication list was reviewed and adjusted as indicated. Medication requiring a refill was addressed. Risk and benefits of any new medications were discussed and all questions were answered. 03/10/2024 Other Assessment and Plan: 1. High cortisol levels- Plan: Repeat DEXA suppression test in approximately two months. Patient should avoid steroids, estrogen, and Medrol dose packs for six weeks to two months before the test. Reevaluate cortisol levels and consider further investigation if necessary. 2. Weight loss and management- Patient has successfully lost 51 pounds on Mounjaro.- Plan: Increase Mounjaro dose to 7.5 for the next 90 days. Monitor patient's weight loss progress and tolerance to the medication. Encourage continued healthy lifestyle habits. 3. Type 2 Diabetes- Patient's A1c is 5.4, and fasting glucose levels are good.- Plan: Continue current management with metformin. Monitor blood sugar levels and adjust treatment as needed. 4. Sleep apnea- Patient had a negative sleep study in the past.- Plan: No further action needed at this time. Reevaluate if patient reports new symptoms or concerns. 5. Follow-up- Plan: Schedule a follow-up appointment in three months. Patient should complete blood tests approximately one month before the appointment. Discuss lab results and adjust treatment plans as necessary. Spent 15 minutes preventative counseling patient on dietary recommendations and changes in setting of hyperglycemia- need to restrict refined sugars and processed foods and incorporate up to 150 minutes of moderate level activity weekly. Spent 25 minutes preparing to see the patient (ex review of tests/chart), obtaining and / or reviewing separately obtained history, performing a medically appropriate examination and/or evaluation, counseling and educating the patient/family/careg iver, ordering medications, tests, or procedures, referring and communicating with other health career development manager, documenting clinical information in the electronic or other health record, independently interpreting results and communicating results to the patient/family/careg iver and care coordinating patient plan. Patient alert and oriented x 4 and aware of discussion noted above and in agreeance to plan in management of type 2 DM well controlled, hypothyroidism, obesity/weight management and dyslipidemia. Due to the nature of telemedicine, the ability to do physical assessment was limited to what can be accomplished by patient directed telehealth visit based on instruction. Those limits are understood by the patient and myself. Impression is based on history, available information, and physical findings accomplished with telehealth visit. Chronic disease/problem list/ medication list reviewed and updated where indicated. Discussed diagnosis, plan including risks, benefits, and options of treatment. Advised to call for new, worsening, or persistent symptoms. Level of patient risk was of moderate complexity due to the documented nature of presentation, the information assessment required and the nature of the development of an evaluation and treatment plan as documented. PMH, FHx, SHx, Surgical Hx, Quality management review carried out and addressed as documented today as part of this visit. Medication list was reviewed and adjusted as indicated. Medication requiring a refill was addressed. Risk and benefits of any new medications were discussed and all questions were answered. Plan Of Treatment No Information Insurance Providers Payer Name Payer Address Payer Phone Subscriber Number Group Number Insured Name Patient Relationship to Insured Coverage Start Date Coverage End Date [place] [employer] [address] [place] [address] [id number] LINDA COLE Self - patient is the insured Medical (General) History Medical History History ICD Code prediabetes ADHD Surgical History Surgery Date(Month/Year) partial hysterectomy 2019 c section 2016 c section 2015 breast reduction 2009 gallbladder removed 2016
[2024-07-10] MEDS: HYDROmorphone HCL INJ (*CRX) 2 MG/ML VIAL 0.5 MG IV PUSH (14:14)
[2024-07-10] MEDS: ONDANSETRON INJ 4 MG/2 ML VIAL IV PUSH (14:14)
--- NOTE | 2024-07-10 14:49 | ED_ITS ---
HPI - Extremity Injury (Lower) General Chief Complaint: Extremity Injury, Lower Stated Complaint: left ankle injury Time Seen by Provider: 07/10/24 14:45 Source: patient Mode of arrival: ambulatory Limitations: no limitations History of Present Illness HPI Narrative: 44 years old white female stood up fast, somehow twisted left ankle. Denies other symptoms. Patient report having multiple ankle fracture in the past, current and vitamin-D been seen by her aerospace products sales engineer numerous of time for similar event, and history of diabetes,, depression, PCOS. Related Data Home Medications ?Medication ?Instructions ?Recorded ?Confirmed ?Last Taken ?Type dextroamphetamine-amphetamine ER PO DAILY 06/03/24 06/03/24 Unknown History 20 mg 24hr capsule,extend release metformin 500 mg tablet,extended mg PO 06/03/24 06/03/24 Unknown History release 24 hr tirzepatide 7.5 mg/0.5 mL mg subcut 06/03/24 06/03/24 Unknown History subcutaneous pen injector (Mounjaro) Allergies Allergy/AdvReac Type Severity Reaction Status Date / Time No Known Allergies Allergy Verified 07/10/24 13:10 Review of Systems Review of Systems: All systems reviewed & are unremarkable except as noted in HPI and below PMFSH Past Medical History Medical History BMI 34.0-34.9,adult Morbid obesity BMI 29.0-29.9,adult BMI greater than 30 Elevated fasting glucose Adult BMI 31.0-31.9 kg/sq m Adult BMI 32.0-32.9 kg/sq m TIA (transient ischemic attack) Surgical History Surgical History H/O bilateral breast reduction surgery History of History of cholecystectomy H/O: hysterectomy Family History Family History Father Seizure disorder Carcinoma of colon Mother No problems noted. 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 Musculoskeletal: Left ankle exam showed diffuse tenderness, swelling lateral malleolus, slightly deformed Neurologic: Alert and oriented ?3, HEALTH COORDINATOR is normal as tested, no gross motor deficit Course Vital Signs Vital signs: Vital Signs Temperature 36.8 C 07/10/24 13:04 Pulse Rate 106 H 07/10/24 13:04 Respiratory Rate 18 07/10/24 13:04 Blood Pressure 90/61 L 07/10/24 13:04 Pulse Oximetry 99 07/10/24 13:04 Oxygen Delivery Room Air 07/10/24 13:04 Temperature 36.8 C 07/10/24 13:04 Pulse Rate 106 H 07/10/24 13:04 Respiratory Rate 18 07/10/24 13:04 Blood Pressure 90/61 L 07/10/24 13:04 Pulse Oximetry 99 07/10/24 13:04 Oxygen Delivery Room Air 07/10/24 13:04 MDM - Extremity Injury (Lower) MDM Narrative Medical decision making narrative: Patient was thinking, Differential diagnosis includes sprain versus fracture X-ray showed nondisplaced fracture left distal fibula Sutures leg splint was placed, follow-up with Dr. tay Differential Diagnosis Differential diagnosis: Likely ankle sprain and strain and ankle fracture Medical Records Attestation: I reviewed the patient's medical records. Imaging Data Radiologist's impression: Impressions Ankle X-Ray 07/10/24 14:48 IMPRESSION: 1. Minimally displaced Matt type B oblique fracture of the lateral malleolus with large left ankle joint fusion. Critical Care Time Critical Care Time Critical Care Time: No Discharge Plan Discharge Clinical Impression: Ankle fracture, left Patient Disposition: Home Condition: Stable Instructions: Ankle Fracture (DC) Additional Instructions: Return if symptoms are worsening , call your family physician for appointment, take Tylenol as as needed for aches and pain, continue home medications. Keep left foot elevated, crutches as needed Patient Language: Chilean Prescriptions: New hydrocodone-acetaminophen 5-325 mg tablet 1 tablet PO Q4H Qty: 20 0RF No Action Mounjaro 7.5 mg/0.5 mL pen injector subcut dextroamphetamine-amphetamine 20 mg capsule,extended release 24hr PO DAILY metformin 500 mg tablet extended release 24 hr PO buspirone 10 mg tablet 10 mg PO BID Qty: 60 2RF ondansetron 4 mg tablet,disintegrating 4 mg PO Q8H PRN (Reason: nausea and vomiting) Qty: 14 0RF venlafaxine 150 mg capsule,extended release 24hr See Rx Instructions .ROUTE .COMPLEX Qty: 30 3RF Dose Instruction: TAKE 1 CAPSULE BY MOUTH EVERY EVENING Rx Instructions: TAKE 1 CAPSULE BY MOUTH EVERY EVENING Follow-up/Referrals: Jarrell Bravo MD [Primary Care Provider] - Darius Villaseñor MD [Physician] - 07/14/24
--- OUTSIDE RECORDS SUMMARY | 2024-07-10 15:13 | XMS_ITS | Referral Summary ---
Author Organization [facility] Address [address] [place] [address] Care Team Providers Care Carpenters Supervisor Name Role Phone Jarrell Bravo MD Primary Care Provider + [phone] Allergies No known active allergies Medications venlafaxine [...] on file Legal Sex Female 5:54 PM BEAUTY CULTURE TEACHER Gender Identity Female 07/30/2019 1:04 PM [...] Modality Breast Bilateral Mammography 02/06/2024 9:02 AM BEAUTY CULTURE TEACHER Impressions 02/06/2024 9:02 AM BEAUTY CULTURE TEACHER No evidence of malignancy in either breast. FINAL ASSESSMENT: BI-RADS Category 1: Negative. RECOMMENDATION: Recommend return for annual screening mammogram in 12 months. Electronically signed by: Gabrielle Nicole MD Narrative 02/06/2024 9:02 AM BEAUTY CULTURE TEACHER EXAMINATION: BILATERAL SCREENING MAMMOGRAM COMPARISON: Mammography [...] - 12/21/2022 10:07 PM CDT Performed at: [facility] [id number] Buttermaker: Carola Craig MD, Phone: [phone] Performed at: [facility] [id number] Buttermaker: Carola Craig MD, Phone: [phone] Specimen Comment: Source.............Cervix;Endocervix Specimen Comment: No. of containers..01 ThinPrep Vial Cailin Garcia RESCUE INSTRUCTOR LAB CYTOLOGY ORDERABLES Fin al Result [facility] 01 LAB [facility] 02 from Last 3 Months or Most Recently Relevant to Health Maintenance [place] [employer] [place] [employer] [place] Care Teams Carpenters Supervisor Relationship Specialty Start Date End Date Jarrell Bravo MD [facility] - General 06/01/19
--- OUTSIDE RECORDS SUMMARY | 2024-07-10 15:13 | XMS_ITS | Clinical Summary ---
Author Organization [facility] Address [address] [place] [address] Care Team Providers Care Application Integration Specialist Name Role Phone Jarrell Bravo MD Primary Care Provider + [phone] Allergies No known active allergies Medications venlafaxine [...] on file Legal Sex Female 5:54 PM ROLL FORMING MACHINE SET UP OPERATOR Gender Identity Female 07/30/2019 1:04 PM CDT [...] Modality Breast Bilateral Mammography 02/06/2024 9:02 AM ROLL FORMING MACHINE SET UP OPERATOR Impressions 02/06/2024 9:02 AM ROLL FORMING MACHINE SET UP OPERATOR No evidence of malignancy in either breast. FINAL ASSESSMENT: BI-RADS Category 1: Negative. RECOMMENDATION: Recommend return for annual screening mammogram in 12 months. Electronically signed by: Gabrielle Nicole MD Narrative 02/06/2024 9:02 AM ROLL FORMING MACHINE SET UP OPERATOR EXAMINATION: BILATERAL SCREENING MAMMOGRAM COMPARISON: Mammography 10/30/2022 TECHNIQUE: Full-field 2D and digital breast tomosynthesis (DBT) images were obtained. CAD was utilized. BREAST PARENCHYMAL COMPOSITION: The breasts are almost entirely fatty. FINDINGS: There is no suspicious mass, calcification, or distortion in either breast. Cailin Garcia ART HISTORIAN IMG MAMMO PROCEDURES Final Result * Pap [...] 12/21/2022 10:07 PM CDT Performed at: - [address] [id number] Clinical Registered Nurse: Carola Craig MD, Phone: [phone] Performed at: - [address] [id number] Clinical Registered Nurse: Carola Craig MD, Phone: [phone] Specimen Comment: Source.............Cervix;Endocervix Specimen Comment: No. of containers..01 ThinPrep Vial Cailin Garcia NP LAB CYTOLOGY ORDERABLES Fin al Result [facility] 01 LAB [facility] 02 from Last 3 Months or Most Recently Relevant to Health Maintenance Insurance [employer] [id number] [employer] Care Teams Application Integration Specialist Relationship Specialty Start Date End Date Jarrell Bravo MD PCP - General 06/01/19
--- OUTSIDE RECORDS SUMMARY | 2024-07-10 15:13 | XMS_ITS | Clinical Summary ---
Author Organization [facility] Address [address] [place] [address] Care Team Providers Care Automotive Buyer Name Role Phone Jarrell Barvo MD Primary Care Provider [phone] Allergies No known active allergies Medications zolpidem [...] Comments Blood Pressure 119/72 03/15/2018 11:34 AM PHOTOCOMPOSING KEYBOARD OPERATOR Pulse 79 03/15/2018 11:34 AM PHOTOCOMPOSING KEYBOARD OPERATOR Temperature 36.8 C (98.2 F) 03/15/2018 11:34 AM PHOTOCOMPOSING KEYBOARD OPERATOR Respiratory Rate 18 03/15/2018 11:3 4 AM PHOTOCOMPOSING KEYBOARD OPERATOR Oxygen Saturation 95% 03/15/2018 11: 34 AM PHOTOCOMPOSING KEYBOARD OPERATOR Inhaled Oxygen Concentration - - Weight 104.5 kg (230 lb 4.8 oz) 018 11:34 AM PHOTOCOMPOSING KEYBOARD OPERATOR Height 170.2 cm (5' 7 ) 03/15/2018 11:3 4 AM PHOTOCOMPOSING KEYBOARD OPERATOR Body Mass Index 36.07 03/15/2018 11:34 AM PHOTOCOMPOSING KEYBOARD OPERATOR Plan of Treatment Health Maintenance Due Date [...] topic Insurance [employer] Care Teams Automotive Buyer Relationship Specialty Start Date End Date Jarrell Bravo MD [address] [place] [address] PCP - General Family Practice 01/25/18
--- OUTSIDE RECORDS SUMMARY | 2024-07-10 15:13 | XMS_ITS | Encounter Summary ---
Author Organization [facility] Address [address] [place] [address] Care Team Providers Care Kiln Car Unloader Name Role Phone Jarrell Bravo MD Primary Care Provider [phone] Vipin Drake MD Unavailable [phone] Encounter Details Date Type Department Care Team (Late st Contact Info) Description 07/15/2018 Lab Requisition [facility] [address] [facility] [place] [id number] Nia Shelton MD [address] [facility] [address] DEPT [place] [address] Social History Tobacco Use Types Packs/Day Years [...] AM CDT) Case Report Dermatopathology Report Case: [id number] Authorizing Provider: Nia Shelton MD Collected: 07/11/2018 12:00 AM Pathologist: Jessi Cannon MD Received: 07/15/2018 06:37 AM Specimen: Skin, right cheek 1:35 PM CDT DERMATOPATHOLOGY LABORATORY Final Diagnosis Specimen A. 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, directed by Dr. Pao Cannon. These tests need not be, and therefore are not, approved by the [place] Food and Drug Administration. The tests are used for clinical purposes. Billing Codes Specimen Charges Stain Charges 28126 1 1:35 PM CDT DERMATOPATHOLOGY LABORATORY Embedded Images 1:35 PM CDT DERMATOPATHOLOGY LABORATORY Pathology/Cytolog y TISSUE SPECIMEN FROM SKIN / Unknown 07/11/2018 07/15/2018 6:37 AM CDT us Nia Shelton MD LAB - PATHOLOGY/CYTOLOGY ORD ERABLES Final Result DERMATOPATHOLOGY LABORATORY [facility] - Department of Dermatology [address] [facility] [place] [address], [facility] [phone] documented in this encounter Visit Diagnoses Not on filedocumented in this encounter Care Teams Kiln Car Unloader Relationship Specialty Start Date End Date Jarrell Bravo MD [address] [place] [address] PCP - General Family Medicine 07/24/16 Vipin Drake MD [address] [id number] PCP - Attributed-[employer] [place] 06/24/21 02/10/22 documented as of this encounter
--- OUTSIDE RECORDS SUMMARY | 2024-07-10 15:13 | XMS_ITS | Clinical Summary ---
Author Organization [facility] [employer] Address [address] [place] [address] Care Team Providers Care Packaging Machine Operator Name Role Phone Jarrell Bravo MD Primary Care Provider [phone] Source Comments [facility] [employer],non-owned Affiliates and Associated Physician Practices is amultiple site organization consisting of ambulatory clinics and hospital sitesin [place], [place], [place] and [place]. This disclosure is being madepursuant to the Care Everywhere program and may not contain all information available regarding this patient. Last updated 17.[facility] [employer] Allergies No known active allergies Medications * Be aware that medications may not be up to date on this document. Alwaysverify current medications with the patient. escitalopram (LEXAPRO) 20 MG tablet Take 20 mg by mouth once daily Active fluticasone propionate (FLONASE) 50 MCG/ACT nasal spray [place] 2 sprays into each nostril once daily [...] age to complete this topic Insurance [employer] [facility] Care Teams Packaging Machine Operator Relationship Specialty Start Date End Date Jarrell Bravo MD [address] [place] [address] PCP - General Family Medicine 07/24/16
[2024-07-10 15:44] VITALS: BP 124/78; PULSE 76; RESP 16; TEMP 36.6; O2SAT 100
== END 2024-07-10 15:56 | disposition home or self-care (01) ==
PROVIDERS: Emergency Provider Emergency Medicine; PCP Family Medicine
DX: S82.892A Other fracture of left lower leg, initial encounter for closed fracture (principal); X50.1XXA Overexertion from prolonged static or awkward postures, initial encounter; E11.9 Type 2 diabetes mellitus without complications; F32.A Depression, unspecified; Z86.73 Personal history of transient ischemic attack (TIA), and cerebral infarction without residual deficits
CPT/HCPCS: 29515; 73610; 96374; 96375; 99284; J1171; J2405